=== PATIENT | female | born 1975 | race Two or more races ===

== ENCOUNTER → 2023-09-02 | Emergency (ER) | payer OTHER ==
[~2023-09-02] VITALS: Ht 154.9 cm; Wt 54.4 kg
[2023-09-02 16:18] LABS: HEMATOCRIT 38.2 % (36.0-45.00); HEMOGLOBIN 13.1 g/dL (12.0-15.00); MEAN CORPUSCULAR HEMOGLOBIN 30.3 pg (27.00-32.0); MEAN CORPUSCULAR HGB CONC 34.4 g/dl (32.0-36.0); PLATELET COUNT 304 K/uL (150-450); RED BLOOD COUNT 4.34 M/uL (4.00-6.00); RED CELL DISTRIBUTION WIDTH 12.4 % (11.5-14.5)
== END | disposition home or self-care (01) ==
LOC: ER 12:20
PROVIDERS: General Practice
DX: K52.9 Noninfective gastroenteritis and colitis, unspecified (principal)